=== PATIENT | female | born 1960 | race Caucasian/White ===

== ENCOUNTER 2019-05-29 09:40 | Inpatient (IN) | payer MEDICARE ==
[~2019-05-29] VITALS: Ht 157.5 cm; Wt 56.1 kg
[2019-05-29 11:31] LABS: BASOPHILS % (AUTO) 0.8 % (0.0-2.0); EOSINOPHILS % (AUTO) 1.2 % (1.0-6.0); HEMATOCRIT 46.1 % (36-46); HEMOGLOBIN 15.2 g/dL (12.0-16.0); LYMPHOCYTES # (AUTO) 1.4 K/uL (1.0-4.8); LYMPHOCYTES % (AUTO) 16.6 % (22.0-44.0); MEAN CORPUSCULAR HGB CONC 32.9 G/dL (31.0-37.0); MEAN CORPUSCULAR VOLUME 91 fL (80-100); MONOCYTES # (AUTO) 0.6 K/uL (0.1-1.0); MONOCYTES % (AUTO) 6.9 % (2.0-9.0); NEUTROPHILS # (AUTO) 6.2 K/uL (1.8-7.7); NEUTROPHILS % (AUTO) 74.5 % (40.0-70.0); PLATELET COUNT (AUTO) 201 K/uL (150-450); RED BLOOD CELL COUNT(AUTO) 5.06 MIL/uL (4.00-5.20)
[2019-05-29 11:53] LABS: ALANINE AMINOTRANSFERASE 14 U/L (12-78); ALBUMIN 3.4 g/dL (3.4-5.0); ALKALINE PHOSPHATASE 81 U/L (46-116); ANION GAP 8 mmol/L (8-16); ASPARTATE AMINOTRANSFERASE 41 U/L (15-37); BILIRUBIN,TOTAL 0.8 mg/dL (0.1-1.0); CALCIUM, TOTAL 9.5 mg/dL (8.8-10.5); CARBON DIOXIDE 28 mmol/L (22-29); CHLORIDE 103 mmol/L (98-107); CREATININE 0.94 mg/dL (0.60-1.30); GLOMERULAR FILTR. RATE CALC > 60 mL/min (>60); GLUCOSE,RANDOM 94 mg/dL (70-110); POTASSIUM 3.7 mmol/L (3.5-5.1); SODIUM SERUM 139 mmol/L (136-145)
[2019-05-29 12:56] LABS: UREA NITROGEN, BLOOD 13 mg/dL (7-18)
[2019-05-29] MEDS ORDERED: LORazepam 2 MG TABLET PO PRN (14:45)
[2019-05-29] MEDS ORDERED: HALOPERIDOL 5 MG TABLET PO PRN (14:45)
[2019-05-29] MEDS ORDERED: ZOLPIDEM TARTRATE 10 MG TABLET PO PRN (14:45)
[2019-05-29] MEDS ORDERED: DOCUSATE SODIUM 100 MG CAPSULE PO PRN (18:30)
[2019-05-29] MEDS ORDERED: NICOTINE 14 MG/24 HOUR PATCH TD PRN (18:30)
[2019-05-29] MEDS ORDERED: PETROLATUM,WHITE 28 GM JELLY TP PRN (18:30)
[2019-05-29] MEDS ORDERED: IBUPROFEN 400 MG TABLET PO PRN (18:30)
[2019-05-29] MEDS ORDERED: ONDANSETRON HCL 4 MG TABLET PO PRN (18:30)
[2019-05-29] MEDS ORDERED: LOPERAMIDE HCL 2 MG CAPSULE PO PRN (18:30)
[2019-05-29] MEDS ORDERED: MAG HYDROX/AL HYDROX/SIMETH ES 30 ML SUSPENSION UDCUP PO PRN (18:30)
[2019-05-29] MEDS ORDERED: ACETAMINOPHEN 325 MG TABLET PO PRN (18:30)
[2019-05-29] MEDS ORDERED: CloNIDine HCL 0.1 MG TABLET PO PRN (18:30)
[2019-05-29] MEDS ORDERED: GuaiFENesin/D-METHORPHAN [SUGAR-FREE] 200-20MG/10 ML SYRUP UDCUP PO PRN (18:30)
[2019-05-29] MEDS ORDERED: MAGNESIUM HYDROXIDE SUSPENSION 30 ML UDCUP PO PRN (18:30)
[2019-05-29] MEDS ORDERED: ALBUTEROL SULFATE HFA 90 MCG/PUFF 8 GM INHALER IH PRN (18:30)
[2019-05-29 18:51] VITALS: BP 95/58
[2019-05-30] MEDS: ZINC OXIDE 16% PASTE 57 GM TUBE TP SCH (17:00)
[2019-05-31] MEDS: ZINC OXIDE 16% PASTE 57 GM TUBE TP SCH ×2 (09:00→17:00)
[2019-06-01] MEDS: ZINC OXIDE 16% PASTE 57 GM TUBE TP SCH ×2 (09:00→17:00)
[2019-06-01] MEDS: VENLAFAXINE HCL 75 MG ER CAPSULE PO SCH (13:30)
[2019-06-01] MEDS: BuPROPion HCL XL 150 MG ER TABLET PO SCH (13:30)
[2019-06-01] MEDS: ARIPiprazole 5 MG TABLET PO SCH (13:30)
[2019-06-02] MEDS: ZINC OXIDE 16% PASTE 57 GM TUBE TP SCH ×2 (09:00→15:50)
[2019-06-02] MEDS: BuPROPion HCL XL 150 MG ER TABLET PO SCH (09:00)
[2019-06-02] MEDS: VENLAFAXINE HCL 75 MG ER CAPSULE PO SCH (09:00)
[2019-06-02] MEDS: ARIPiprazole 5 MG TABLET PO SCH (09:00)
[2019-06-03] MEDS: ZINC OXIDE 16% PASTE 57 GM TUBE TP SCH ×2 (09:00→16:33)
[2019-06-03] MEDS: ARIPiprazole 5 MG TABLET PO SCH (09:00)
[2019-06-03] MEDS: VENLAFAXINE HCL 75 MG ER CAPSULE PO SCH (09:00)
[2019-06-03] MEDS: BuPROPion HCL XL 150 MG ER TABLET PO SCH (09:00)
[2019-06-04] MEDS: ARIPiprazole 5 MG TABLET PO SCH (09:00)
[2019-06-04] MEDS: VENLAFAXINE HCL 75 MG ER CAPSULE PO SCH (09:00)
[2019-06-04] MEDS: BuPROPion HCL XL 150 MG ER TABLET PO SCH (09:00)
[2019-06-04] MEDS: ZINC OXIDE 16% PASTE 57 GM TUBE TP SCH ×2 (09:00→17:00)
[2019-06-05 08:06] VITALS: BP 105/82
[2019-06-05] MEDS: VENLAFAXINE HCL 75 MG ER CAPSULE PO SCH (09:00)
[2019-06-05] MEDS: ARIPiprazole 5 MG TABLET PO SCH (09:00)
[2019-06-05] MEDS: BuPROPion HCL XL 150 MG ER TABLET PO SCH (09:00)
[2019-06-05] MEDS: ZINC OXIDE 16% PASTE 57 GM TUBE TP SCH (09:00)
== END 2019-06-05 15:00 | disposition home or self-care (01) | DRG 885 ==
LOC: EDBD 10:05 → EMS 10:05 → 3EX 16:39
PROVIDERS: ADMIT Psychiatry & Neurology Psychiatry; ATTEND Psychiatry & Neurology Psychiatry
DX: F25.9 Schizoaffective disorder, unspecified (principal); F43.10 Post-traumatic stress disorder, unspecified; I50.9 Heart failure, unspecified; M19.90 Unspecified osteoarthritis, unspecified site; I95.9 Hypotension, unspecified; R74.0 Nonspecific elevation of levels of transaminase and lactic acid dehydrogenase [LDH]; Z59.0 Homelessness; Z91.19 Patient's noncompliance with other medical treatment and regimen; Z87.01 Personal history of pneumonia (recurrent)
CPT/HCPCS: G0378; G0480

== ENCOUNTER 2019-06-15 09:47 | Inpatient (IN) | payer MEDICARE ==
[~2019-06-15] VITALS: Ht 157.5 cm; Wt 56.8 kg
[2019-06-15] MEDS ORDERED: HALOPERIDOL 5 MG TABLET PO PRN (11:30)
[2019-06-15] MEDS ORDERED: LORazepam 2 MG TABLET PO PRN (11:30)
[2019-06-15] MEDS ORDERED: ZOLPIDEM TARTRATE 10 MG TABLET PO PRN (11:30)
[2019-06-15] MEDS ORDERED: ACETAMINOPHEN 325 MG TABLET PO PRN ×2 (11:45→23:00)
[2019-06-15] MEDS ORDERED: LORazepam 2 MG TABLET PO ONE (11:45)
[2019-06-15] MEDS ORDERED: IBUPROFEN 400 MG TABLET PO PRN ×2 (11:45→23:00)
[2019-06-15] MEDS ORDERED: HALOPERIDOL 5 MG TABLET PO ONE (11:45)
[2019-06-15 12:52] LABS: BASOPHILS % (AUTO) 0.7 % (0.0-2.0); EOSINOPHILS % (AUTO) 0.9 % (1.0-6.0); HEMATOCRIT 43.6 % (36-46); HEMOGLOBIN 14.4 g/dL (12.0-16.0); LYMPHOCYTES # (AUTO) 1.8 K/uL (1.0-4.8); MEAN CORPUSCULAR HEMOGLOBIN 29.8 pg (26.0-34.0); MEAN CORPUSCULAR VOLUME 91 fL (80-100); MONOCYTES # (AUTO) 0.6 K/uL (0.1-1.0); MONOCYTES % (AUTO) 5.5 % (2.0-9.0); NEUTROPHILS # (AUTO) 7.9 K/uL (1.8-7.7); NEUTROPHILS % (AUTO) 75.9 % (40.0-70.0); PLATELET COUNT (AUTO) 291 K/uL (150-450); RED BLOOD CELL COUNT(AUTO) 4.82 MIL/uL (4.00-5.20); RED CELL DISTRIBUTION WIDTH 14.3 % (11.5-14.5)
[2019-06-15 13:06] LABS: ANION GAP 7 mmol/L (8-16); CALCIUM, TOTAL 9.3 mg/dL (8.8-10.5); CARBON DIOXIDE 29 mmol/L (22-29); CHLORIDE 102 mmol/L (98-107); GLOMERULAR FILTR. RATE CALC > 60 mL/min (>60); GLUCOSE,RANDOM 88 mg/dL (70-110); POTASSIUM 3.8 mmol/L (3.5-5.1); SODIUM SERUM 138 mmol/L (136-145); UREA NITROGEN, BLOOD 13 mg/dL (7-18)
[2019-06-15 13:12] LABS: ALANINE AMINOTRANSFERASE 11 U/L (12-78); ALBUMIN 3.4 g/dL (3.4-5.0); ALKALINE PHOSPHATASE 82 U/L (46-116); ASPARTATE AMINOTRANSFERASE 16 U/L (15-37); BILIRUBIN,TOTAL 0.4 mg/dL (0.1-1.0); TOTAL PROTEIN, SERUM 6.6 g/dL (6.4-8.2)
[2019-06-15 19:20] VITALS: BP 110/74
[2019-06-15] MEDS ORDERED: MAGNESIUM HYDROXIDE SUSPENSION 30 ML UDCUP PO PRN (23:00)
[2019-06-15] MEDS ORDERED: PETROLATUM,WHITE 28 GM JELLY TP PRN (23:00)
[2019-06-15] MEDS ORDERED: CloNIDine HCL 0.1 MG TABLET PO PRN (23:00)
[2019-06-15] MEDS ORDERED: GuaiFENesin/D-METHORPHAN [SUGAR-FREE] 200-20MG/10 ML SYRUP UDCUP PO PRN (23:00)
[2019-06-15] MEDS ORDERED: LOPERAMIDE HCL 2 MG CAPSULE PO PRN (23:00)
[2019-06-15] MEDS ORDERED: ALBUTEROL SULFATE HFA 90 MCG/PUFF 8 GM INHALER IH PRN (23:00)
[2019-06-15] MEDS ORDERED: ONDANSETRON HCL 4 MG TABLET PO PRN (23:00)
[2019-06-15] MEDS ORDERED: NICOTINE 14 MG/24 HOUR PATCH TD PRN (23:00)
[2019-06-15] MEDS ORDERED: DOCUSATE SODIUM 100 MG CAPSULE PO PRN (23:00)
[2019-06-15] MEDS ORDERED: MAG HYDROX/AL HYDROX/SIMETH ES 30 ML SUSPENSION UDCUP PO PRN (23:00)
[2019-06-16 07:19] LABS: BASOPHILS % (AUTO) 0.6 % (0.0-2.0); EOSINOPHILS % (AUTO) 1.7 % (1.0-6.0); HEMATOCRIT 42.7 % (36-46); HEMOGLOBIN 13.8 g/dL (12.0-16.0); LYMPHOCYTES # (AUTO) 1.9 K/uL (1.0-4.8); LYMPHOCYTES % (AUTO) 22.6 % (22.0-44.0); MEAN CORPUSCULAR HEMOGLOBIN 29.4 pg (26.0-34.0); MEAN CORPUSCULAR HGB CONC 32.3 G/dL (31.0-37.0); MEAN CORPUSCULAR VOLUME 91 fL (80-100); MONOCYTES # (AUTO) 0.4 K/uL (0.1-1.0); NEUTROPHILS # (AUTO) 5.9 K/uL (1.8-7.7); NEUTROPHILS % (AUTO) 70.1 % (40.0-70.0); PLATELET COUNT (AUTO) 276 K/uL (150-450); RED BLOOD CELL COUNT(AUTO) 4.69 MIL/uL (4.00-5.20); RED CELL DISTRIBUTION WIDTH 14.7 % (11.5-14.5)
[2019-06-16 07:30] LABS: HEMOGLOBIN A1C 5.9 % (4.5-6.2)
[2019-06-16 07:49] LABS: ALBUMIN 2.9 g/dL (3.4-5.0); BILIRUBIN,TOTAL 0.4 mg/dL (0.1-1.0); CHOL/HDL RATIO 4.2 (3.9-5.7); CREATININE 0.96 mg/dL (0.60-1.30); POTASSIUM 4.3 mmol/L (3.5-5.1); THYROID STIMULATING HORMONE 7.6 uIU/mL (0.36-3.74); TOTAL PROTEIN, SERUM 5.6 g/dL (6.4-8.2)
[2019-06-16 08:00] VITALS: BP 100/57
[2019-06-16 15:52] LABS: FREE T4 (FREE THYROXINE) 1.02 ng/dL (0.76-1.46)
[2019-06-16 17:16] VITALS: BP 91/52
[2019-06-17 08:00] VITALS: BP 102/54
[2019-06-18] MEDS: LEVOTHYROXINE SODIUM 25 MCG TABLET PO SCH (07:00)
[2019-06-18 08:00] VITALS: BP 101/56
[2019-06-19] MEDS: LEVOTHYROXINE SODIUM 25 MCG TABLET PO SCH (07:00)
[2019-06-20] MEDS: LEVOTHYROXINE SODIUM 25 MCG TABLET PO SCH (06:37)
[2019-06-20] MEDS: OLANZapine 10 MG TABLET PO SCH ×2 (18:00→19:00)
[2019-06-21] MEDS: LEVOTHYROXINE SODIUM 25 MCG TABLET PO SCH (06:54)
[2019-06-21] MEDS: OLANZapine 10 MG TABLET PO SCH ×3 (09:00→16:41)
[2019-06-22] MEDS: LEVOTHYROXINE SODIUM 25 MCG TABLET PO SCH (06:43)
[2019-06-22] MEDS: OLANZapine 10 MG TABLET PO SCH ×2 (08:09→17:00)
[2019-06-23] MEDS: LEVOTHYROXINE SODIUM 25 MCG TABLET PO SCH (06:44)
[2019-06-23 08:00] VITALS: BP 91/60
[2019-06-23] MEDS: OLANZapine 10 MG TABLET PO SCH ×2 (09:00→17:00)
[2019-06-23] MEDS: HALOPERIDOL LACTATE 5 MG/ML VIAL IM PRN (18:13)
[2019-06-23] MEDS: LORazepam 2 MG/ML VIAL IM PRN (18:14)
[2019-06-23] MEDS: DiphenhydrAMINE HCL 50 MG/ML VIAL IM PRN (18:14)
[2019-06-24] MEDS: LEVOTHYROXINE SODIUM 25 MCG TABLET PO SCH (06:32)
[2019-06-24 08:34] VITALS: BP 92/60
[2019-06-24] MEDS: OLANZapine 10 MG TABLET PO SCH ×2 (08:49→17:00)
[2019-06-24] MEDS: HALOPERIDOL LACTATE 5 MG/ML VIAL IM PRN ×2 (11:53→20:14)
[2019-06-24] MEDS: DiphenhydrAMINE HCL 50 MG/ML VIAL IM PRN ×2 (11:53→20:14)
[2019-06-24] MEDS: LORazepam 2 MG/ML VIAL IM PRN ×2 (11:53→20:14)
[2019-06-25] MEDS: LEVOTHYROXINE SODIUM 25 MCG TABLET PO SCH (06:35)
[2019-06-25 08:45] VITALS: BP 98/54
[2019-06-25] MEDS: OLANZapine 10 MG TABLET PO SCH ×2 (08:48→17:00)
[2019-06-25] MEDS: LORazepam 2 MG/ML VIAL IM PRN ×2 (09:05→19:41)
[2019-06-25] MEDS: DiphenhydrAMINE HCL 50 MG/ML VIAL IM PRN ×2 (09:05→19:40)
[2019-06-25] MEDS: HALOPERIDOL LACTATE 5 MG/ML VIAL IM PRN ×2 (09:08→19:41)
[2019-06-26] MEDS: LEVOTHYROXINE SODIUM 25 MCG TABLET PO SCH (06:44)
[2019-06-26] MEDS: OLANZapine 10 MG TABLET PO SCH ×2 (08:54→17:00)
[2019-06-26] MEDS: LORazepam 2 MG/ML VIAL IM PRN ×2 (09:01→18:09)
[2019-06-26] MEDS: DiphenhydrAMINE HCL 50 MG/ML VIAL IM PRN ×2 (09:01→18:08)
[2019-06-26] MEDS: HALOPERIDOL LACTATE 5 MG/ML VIAL IM PRN ×2 (09:03→18:10)
[2019-06-26 16:48] VITALS: BP 96/63
[2019-06-27] MEDS: LEVOTHYROXINE SODIUM 25 MCG TABLET PO SCH (06:45)
[2019-06-27 08:43] VITALS: BP 90/55
[2019-06-27] MEDS: OLANZapine 10 MG TABLET PO SCH ×2 (09:00→17:00)
[2019-06-27] MEDS: DiphenhydrAMINE HCL 50 MG/ML VIAL IM PRN ×2 (09:28→17:28)
[2019-06-27] MEDS: LORazepam 2 MG/ML VIAL IM PRN ×2 (09:28→17:28)
[2019-06-27] MEDS: HALOPERIDOL LACTATE 5 MG/ML VIAL IM PRN ×2 (09:29→17:28)
[2019-06-27] MEDS ORDERED: ARIPiprazole LAUROXIL,SUBMICR. ER SUSPENSION 675 MG/2.4 ML SYRINGE IM ONE (16:00)
[2019-06-27] MEDS ORDERED: ARIPiprazole 15 MG TABLET PO ONE (16:00)
[2019-06-27 17:07] VITALS: BP 92/58
[2019-06-27 22:35] VITALS: BP 104/55
[2019-06-28] MEDS: LEVOTHYROXINE SODIUM 25 MCG TABLET PO SCH (06:36)
[2019-06-28 08:36] VITALS: BP 91/59
[2019-06-28] MEDS: OLANZapine 10 MG TABLET PO SCH ×2 (09:00→17:25)
[2019-06-28] MEDS: LORazepam 2 MG/ML VIAL IM PRN (10:07)
[2019-06-28] MEDS: DiphenhydrAMINE HCL 50 MG/ML VIAL IM PRN (10:08)
[2019-06-28] MEDS: HALOPERIDOL LACTATE 5 MG/ML VIAL IM PRN (10:08)
[2019-06-28 19:36] VITALS: BP 99/59
[2019-06-29] MEDS: LEVOTHYROXINE SODIUM 25 MCG TABLET PO SCH (06:42)
[2019-06-29] MEDS: OLANZapine 10 MG TABLET PO SCH ×2 (08:16→16:30)
[2019-06-29 08:23] VITALS: BP 84/63
[2019-06-29 16:35] VITALS: BP 94/60
[2019-06-30] MEDS: LEVOTHYROXINE SODIUM 25 MCG TABLET PO SCH (06:43)
[2019-06-30] MEDS: OLANZapine 10 MG TABLET PO SCH ×2 (08:22→15:54)
[2019-06-30 16:05] VITALS: BP 96/60
[2019-07-01] MEDS: LEVOTHYROXINE SODIUM 25 MCG TABLET PO SCH (06:49)
[2019-07-01 08:52] VITALS: BP 89/57
[2019-07-01] MEDS ORDERED: ARIPiprazole LAUROXIL ER SUSPENSION 1064 MG/3.9 ML SYRINGE IM ONE (13:00)
[2019-07-01 16:48] VITALS: BP 96/70
[2019-07-02] MEDS: LEVOTHYROXINE SODIUM 25 MCG TABLET PO SCH (06:44)
[2019-07-02 08:00] VITALS: BP 98/54
[2019-07-02 16:09] VITALS: BP 100/62
[2019-07-03] MEDS: LEVOTHYROXINE SODIUM 25 MCG TABLET PO SCH (06:47)
[2019-07-03 12:02] VITALS: BP 90/62
[2019-07-03] MEDS ORDERED: LORATADINE 10 MG TABLET PO SCH (15:00)
[2019-07-03] MEDS ORDERED: FLUTICASONE PROPIONATE 50 MCG/SPRAY 16 GM NASAL SPRAY NASAL SCH (17:00)
[2019-07-04] MEDS: LEVOTHYROXINE SODIUM 25 MCG TABLET PO SCH (07:00)
[2019-07-04 08:58] VITALS: BP 92/63
[2019-07-05] MEDS: LEVOTHYROXINE SODIUM 25 MCG TABLET PO SCH (06:35)
[2019-07-05 09:10] VITALS: BP 90/60
[2019-07-05 17:24] VITALS: BP 93/61
[2019-07-06] MEDS: LEVOTHYROXINE SODIUM 25 MCG TABLET PO SCH (06:34)
[2019-07-06 09:03] VITALS: BP 92/63
[2019-07-06 16:44] VITALS: BP 101/61
[2019-07-07] MEDS: LEVOTHYROXINE SODIUM 25 MCG TABLET PO SCH (06:48)
[2019-07-07 11:59] VITALS: BP 92/67
[2019-07-07 18:22] VITALS: BP 99/57
[2019-07-08] MEDS: LEVOTHYROXINE SODIUM 25 MCG TABLET PO SCH (06:35)
[2019-07-08 08:23] VITALS: BP 106/74
[2019-07-08 16:48] VITALS: BP 99/59
[2019-07-09] MEDS: LEVOTHYROXINE SODIUM 25 MCG TABLET PO SCH (06:34)
[2019-07-09 08:09] VITALS: BP 90/45
[2019-07-09 16:52] VITALS: BP 105/67
[2019-07-10] MEDS: LEVOTHYROXINE SODIUM 25 MCG TABLET PO SCH (06:27)
[2019-07-10 16:26] VITALS: BP 105/72
[2019-07-11] MEDS: LEVOTHYROXINE SODIUM 25 MCG TABLET PO SCH (06:30)
[2019-07-11 08:00] VITALS: BP 91/65
[2019-07-11 16:29] VITALS: BP 101/87
[2019-07-12] MEDS: LEVOTHYROXINE SODIUM 25 MCG TABLET PO SCH (06:44)
[2019-07-12 16:33] VITALS: BP 88/63
[2019-07-13] MEDS: LEVOTHYROXINE SODIUM 25 MCG TABLET PO SCH (06:31)
[2019-07-13 08:31] VITALS: BP 93/68
[2019-07-13 16:03] VITALS: BP 91/65
[2019-07-14] MEDS: LEVOTHYROXINE SODIUM 25 MCG TABLET PO SCH (06:52)
[2019-07-14 08:12] VITALS: BP 95/69
[2019-07-14 16:57] VITALS: BP 103/62
[2019-07-15] MEDS: LEVOTHYROXINE SODIUM 25 MCG TABLET PO SCH (06:33)
[2019-07-15 16:08] VITALS: BP 102/77
[2019-07-16] MEDS: LEVOTHYROXINE SODIUM 25 MCG TABLET PO SCH (06:38)
[2019-07-16 08:11] VITALS: BP 83/65
[2019-07-16 16:01] VITALS: BP 104/76
[2019-07-17] MEDS: LEVOTHYROXINE SODIUM 25 MCG TABLET PO SCH (06:56)
[2019-07-17 08:27] VITALS: BP 111/67
[2019-07-17 16:05] VITALS: BP 108/77
[2019-07-18] MEDS: LEVOTHYROXINE SODIUM 25 MCG TABLET PO SCH (06:39)
[2019-07-18 08:27] VITALS: BP 91/62
[2019-07-19] MEDS: LEVOTHYROXINE SODIUM 25 MCG TABLET PO SCH (06:22)
[2019-07-19 10:25] VITALS: BP 115/71
[2019-07-19 16:43] VITALS: BP 120/67
[2019-07-20] MEDS: LEVOTHYROXINE SODIUM 25 MCG TABLET PO SCH (06:45)
[2019-07-20 08:20] VITALS: BP 98/66
[2019-07-21] MEDS: LEVOTHYROXINE SODIUM 25 MCG TABLET PO SCH (06:51)
[2019-07-21 08:39] VITALS: BP 101/98
[2019-07-21 16:03] VITALS: BP 106/77
[2019-07-22] MEDS: LEVOTHYROXINE SODIUM 25 MCG TABLET PO SCH (06:27)
[2019-07-22 08:00] VITALS: BP 93/68
[2019-07-22 16:43] VITALS: BP 113/60
[2019-07-23] MEDS: LEVOTHYROXINE SODIUM 25 MCG TABLET PO SCH (06:45)
[2019-07-23 16:26] VITALS: BP 92/64
[2019-07-23 19:35] VITALS: BP 112/62
[2019-07-24] MEDS: LEVOTHYROXINE SODIUM 25 MCG TABLET PO SCH (06:52)
[2019-07-24 16:20] VITALS: BP 98/66
[2019-07-24 20:35] VITALS: BP 100/60
[2019-07-25] MEDS: LEVOTHYROXINE SODIUM 25 MCG TABLET PO SCH (06:51)
[2019-07-25 08:00] VITALS: BP 141/93
[2019-07-25 16:29] VITALS: BP 98/66
[2019-07-26] MEDS: LEVOTHYROXINE SODIUM 25 MCG TABLET PO SCH (06:46)
[2019-07-26 16:28] VITALS: BP 116/71
[2019-07-27] MEDS: LEVOTHYROXINE SODIUM 25 MCG TABLET PO SCH (06:34)
[2019-07-27 06:56] LABS: EOSINOPHILS % (AUTO) 2.3 % (1.0-6.0); HEMATOCRIT 40.7 % (36-46); HEMOGLOBIN 13.4 g/dL (12.0-16.0); LYMPHOCYTES # (AUTO) 1.9 K/uL (1.0-4.8); LYMPHOCYTES % (AUTO) 23.4 % (22.0-44.0); MEAN CORPUSCULAR HEMOGLOBIN 30.4 pg (26.0-34.0); MEAN CORPUSCULAR HGB CONC 32.8 G/dL (31.0-37.0); MEAN CORPUSCULAR VOLUME 93 fL (80-100); MONOCYTES # (AUTO) 0.6 K/uL (0.1-1.0); MONOCYTES % (AUTO) 7.6 % (2.0-9.0); NEUTROPHILS # (AUTO) 5.5 K/uL (1.8-7.7); NEUTROPHILS % (AUTO) 65.7 % (40.0-70.0); PLATELET COUNT (AUTO) 228 K/uL (150-450)
[2019-07-27 07:30] LABS: CALCIUM, TOTAL 9.2 mg/dL (8.8-10.5); CREATININE 0.99 mg/dL (0.60-1.30); POTASSIUM 4.6 mmol/L (3.5-5.1)
[2019-07-27 08:41] VITALS: BP 92/60
[2019-07-27 18:25] VITALS: BP 94/66
[2019-07-28] MEDS: LEVOTHYROXINE SODIUM 25 MCG TABLET PO SCH (06:41)
[2019-07-28 08:38] VITALS: BP 98/64
[2019-07-28 16:49] VITALS: BP 108/69
[2019-07-29] MEDS: LEVOTHYROXINE SODIUM 25 MCG TABLET PO SCH (06:50)
[2019-07-29 08:53] VITALS: BP 90/70
[2019-07-30] MEDS: LEVOTHYROXINE SODIUM 25 MCG TABLET PO SCH (06:42)
[2019-07-30 16:28] VITALS: BP 98/66
[2019-07-31] MEDS: LEVOTHYROXINE SODIUM 25 MCG TABLET PO SCH (06:50)
== END 2019-07-31 15:30 | disposition home or self-care (01) | DRG 885 ==
LOC: EMS 10:00 → 3EC 16:26
PROVIDERS: ADMIT Psychiatry & Neurology Psychiatry; ATTEND Psychiatry & Neurology Psychiatry
DX: F20.0 Paranoid schizophrenia (principal); E03.9 Hypothyroidism, unspecified; F20.1 Disorganized schizophrenia; F43.10 Post-traumatic stress disorder, unspecified; I50.9 Heart failure, unspecified; M19.90 Unspecified osteoarthritis, unspecified site; R45.850 Homicidal ideations; Z87.891 Personal history of nicotine dependence; Z91.19 Patient's noncompliance with other medical treatment and regimen
CPT/HCPCS: 83036; 84439; 84443; 87081; G0480; J1200; J1630; J2060

== ENCOUNTER 2019-07-31 20:55 | Emergency (ER) | payer MEDICARE ==
[~2019-07-31] VITALS: Ht 157.5 cm; Wt 56.4 kg
[2019-07-31 21:56] VITALS: BP 111/67
== END 2019-07-31 22:26 | disposition home or self-care (01) ==
LOC: EMS 20:56
DX: F41.9 Anxiety disorder, unspecified (principal); Z59.0 Homelessness; Z88.8 Allergy status to other drugs, medicaments and biological substances; Z87.891 Personal history of nicotine dependence
CPT/HCPCS: 93005

== ENCOUNTER 2019-08-26 23:44 | Inpatient (IN) | payer MEDICARE ==
[~2019-08-26] VITALS: Ht 157.5 cm; Wt 58.6 kg
[2019-08-27 01:50] LABS: BASOPHILS % (AUTO) 0.9 % (0.0-2.0); EOSINOPHILS % (AUTO) 2.1 % (1.0-6.0); HEMATOCRIT 44.1 % (36-46); HEMOGLOBIN 14.6 g/dL (12.0-16.0); LYMPHOCYTES % (AUTO) 27.6 % (22.0-44.0); MEAN CORPUSCULAR HEMOGLOBIN 30.8 pg (26.0-34.0); MEAN CORPUSCULAR VOLUME 93 fL (80-100); MONOCYTES # (AUTO) 0.5 K/uL (0.1-1.0); MONOCYTES % (AUTO) 7.3 % (2.0-9.0); NEUTROPHILS # (AUTO) 4.5 K/uL (1.8-7.7); NEUTROPHILS % (AUTO) 62.1 % (40.0-70.0); PLATELET COUNT (AUTO) 226 K/uL (150-450); RED BLOOD CELL COUNT(AUTO) 4.72 MIL/uL (4.00-5.20)
[2019-08-27 01:53] LABS: ANION GAP 8 mmol/L (8-16); CALCIUM, TOTAL 8.8 mg/dL (8.8-10.5); CARBON DIOXIDE 30 mmol/L (22-29); CHLORIDE 103 mmol/L (98-107); CREATININE 0.93 mg/dL (0.60-1.30); GLOMERULAR FILTR. RATE CALC > 60 mL/min (>60); GLUCOSE,RANDOM 87 mg/dL (70-110); POTASSIUM 3.6 mmol/L (3.5-5.1); SODIUM SERUM 141 mmol/L (136-145); UREA NITROGEN, BLOOD 9 mg/dL (7-18)
[2019-08-27 02:05] LABS: PLATELET MORPHOLOGY COMMENT LARGE PLTS PRESENT
[2019-08-27 02:12] LABS: B-TYPE NATRIURETIC PEPTIDE 16 pg/mL (0-100)
[2019-08-27 02:20] LABS: ALANINE AMINOTRANSFERASE 22 U/L (12-78); ALBUMIN 3.7 g/dL (3.4-5.0); ALKALINE PHOSPHATASE 102 U/L (46-116); ASPARTATE AMINOTRANSFERASE 22 U/L (15-37); BILIRUBIN,TOTAL 0.2 mg/dL (0.1-1.0); CREATINE KINASE, TOTAL ONLY 191 U/L (26-192); HCG,QUANTITATIVE 3 mIU/mL (0-6); TOTAL PROTEIN, SERUM 7.4 g/dL (6.4-8.2)
[2019-08-27] MEDS ORDERED: HEPARIN SODIUM,PORCINE 5,000 UNITS/ML VIAL IVP PRN ×2 (03:00)
[2019-08-27] MEDS ORDERED: HEPARIN SODIUM 25000 UNITS/D5W 250 ML IV PRN (03:00)
[2019-08-27] MEDS ORDERED: ACETAMINOPHEN 325 MG TABLET PO PRN ×2 (03:45→09:00)
[2019-08-27] MEDS ORDERED: 0.9% SODIUM CHLORIDE 10 ML SYRINGE IVP PRN (03:45)
[2019-08-27] MEDS ORDERED: ONDANSETRON HCL 4 MG/2 ML VIAL IVP PRN (03:45)
[2019-08-27] MEDS ORDERED: HEPARIN SODIUM,PORCINE 5,000 UNITS/ML VIAL IVP ONE (04:00)
[2019-08-27 05:40] VITALS: BP 107/60
[2019-08-27 07:32] VITALS: BP 98/56
[2019-08-27] MEDS: FUROSEMIDE 20 MG/2 ML VIAL IVP SCH (09:00)
[2019-08-27] MEDS: DOCUSATE SODIUM 100 MG CAPSULE PO SCH ×2 (09:00→20:46)
[2019-08-27] MEDS: FAMOTIDINE 20 MG TABLET PO SCH (09:00)
[2019-08-27] MEDS: APIXABAN 5 MG TABLET PO SCH ×2 (09:17→20:46)
[2019-08-27] MEDS ORDERED: SODIUM CHLORIDE 0.9% 500 ML IV ONE (09:56)
[2019-08-27] MEDS ORDERED: SODIUM CHLORIDE 0.9% 250 ML IV ONE (10:00)
[2019-08-27 11:23] VITALS: BP 97/54
[2019-08-27 15:15] VITALS: BP 92/51
[2019-08-27 19:38] VITALS: BP 92/50
[2019-08-28 07:43] VITALS: BP 110/64
[2019-08-28] MEDS: DOCUSATE SODIUM 100 MG CAPSULE PO SCH ×2 (09:00→20:07)
[2019-08-28] MEDS: FUROSEMIDE 20 MG/2 ML VIAL IVP SCH (09:00)
[2019-08-28] MEDS: FAMOTIDINE 20 MG TABLET PO SCH (09:00)
[2019-08-28] MEDS: APIXABAN 5 MG TABLET PO SCH ×2 (09:15→20:05)
[2019-08-28] MEDS ORDERED: *CLINICAL-LEVOFLOXACIN IVPB DOSING CLINICAL ONE (10:00)
[2019-08-28] MEDS: LEVOFLOXACIN 750 MG/D5% WATER 150 ML IV SCH (11:00)
[2019-08-28 11:25] VITALS: BP 106/58
[2019-08-28 20:01] VITALS: BP 105/62
[2019-08-29 04:48] VITALS: BP 102/66
[2019-08-29] MEDS: DOCUSATE SODIUM 100 MG CAPSULE PO SCH ×2 (09:00→21:00)
[2019-08-29] MEDS: FAMOTIDINE 20 MG TABLET PO SCH (09:00)
[2019-08-29] MEDS: FUROSEMIDE 20 MG/2 ML VIAL IVP SCH (09:30)
[2019-08-29] MEDS: APIXABAN 5 MG TABLET PO SCH ×2 (09:30→21:00)
[2019-08-29] MEDS: LEVOFLOXACIN 750 MG/D5% WATER 150 ML IV SCH (10:36)
[2019-08-29 11:11] VITALS: BP 99/69
[2019-08-30 06:35] VITALS: BP 98/65
[2019-08-30] MEDS: APIXABAN 5 MG TABLET PO SCH (08:19)
[2019-08-30] MEDS: DOCUSATE SODIUM 100 MG CAPSULE PO SCH (08:21)
[2019-08-30] MEDS: FUROSEMIDE 20 MG/2 ML VIAL IVP SCH (08:21)
[2019-08-30] MEDS: FAMOTIDINE 20 MG TABLET PO SCH (08:21)
[2019-08-30 09:10] VITALS: BP 89/58
[2019-08-30] MEDS: LEVOFLOXACIN 750 MG/D5% WATER 150 ML IV SCH (10:35)
[2019-08-30 12:32] VITALS: BP 85/49
[2019-08-30] MEDS ORDERED: APIX5TAB PO ×2 (14:06→14:07)
[2019-08-30] MEDS ORDERED: LEVO250 PO (14:07)
== END 2019-08-30 14:35 | disposition home or self-care (01) | DRG 300 ==
LOC: EMS 23:46 → 5S 08-27 04:32
PROVIDERS: ADMIT Internal Medicine; ATTEND Internal Medicine
DX: I82.402 Acute embolism and thrombosis of unspecified deep veins of left lower extremity (principal); L03.116 Cellulitis of left lower limb; F17.210 Nicotine dependence, cigarettes, uncomplicated; F20.9 Schizophrenia, unspecified; F43.10 Post-traumatic stress disorder, unspecified; Z90.710 Acquired absence of both cervix and uterus; Z79.1 Long term (current) use of non-steroidal anti-inflammatories (NSAID); Z59.0 Homelessness
CPT/HCPCS: 87081; 93005; 93306; 93970; 97116; 97162; 97530; J1644; J1940; J1956; J7040

== ENCOUNTER 2019-09-02 18:23 | Inpatient (IN) | payer MEDICARE ==
[~2019-09-02] VITALS: Ht 157.5 cm; Wt 59.0 kg
[~2019-09-02 18:23] MED LIST: APIX5TAB PO; LEVO250 PO
[2019-09-02 20:11] LABS: BASOPHILS % (AUTO) 0.7 % (0.0-2.0); EOSINOPHILS % (AUTO) 2.6 % (1.0-6.0); HEMATOCRIT 40.5 % (36-46); HEMOGLOBIN 13.3 g/dL (12.0-16.0); LYMPHOCYTES % (AUTO) 26.3 % (22.0-44.0); MEAN CORPUSCULAR HEMOGLOBIN 30.6 pg (26.0-34.0); MEAN CORPUSCULAR HGB CONC 32.8 G/dL (31.0-37.0); MEAN CORPUSCULAR VOLUME 94 fL (80-100); MONOCYTES # (AUTO) 0.8 K/uL (0.1-1.0); NEUTROPHILS # (AUTO) 4.6 K/uL (1.8-7.7); NEUTROPHILS % (AUTO) 60.4 % (40.0-70.0); PLATELET COUNT (AUTO) 297 K/uL (150-450); RED BLOOD CELL COUNT(AUTO) 4.33 MIL/uL (4.00-5.20); RED CELL DISTRIBUTION WIDTH 14.3 % (11.5-14.5)
[2019-09-02 20:21] LABS: CREATININE 0.95 mg/dL (0.60-1.30); POTASSIUM 3.6 mmol/L (3.5-5.1)
[2019-09-02 20:26] LABS: INR 0.9 (0.9-1.1); PROTHROMBIN TIME 9.5 SEC (9.4-11.6)
[2019-09-02 20:28] LABS: ALBUMIN 3.4 g/dL (3.4-5.0); BILIRUBIN,TOTAL 0.3 mg/dL (0.1-1.0); TOTAL PROTEIN, SERUM 7.3 g/dL (6.4-8.2)
[2019-09-02] MEDS ORDERED: APIXABAN 5 MG TABLET PO ONE (21:30)
[2019-09-02] MEDS ORDERED: ACETAMINOPHEN 325 MG TABLET PO PRN (22:30)
[2019-09-02] MEDS ORDERED: LEVOFLOXACIN 750 MG/D5% WATER 150 ML IV ONE (22:30)
[2019-09-02] MEDS ORDERED: 0.9% SODIUM CHLORIDE 10 ML SYRINGE IVP PRN (22:30)
[2019-09-02 23:15] VITALS: BP 104/60
[2019-09-03 04:30] VITALS: BP 107/64
[2019-09-03] MEDS ORDERED: 0.9% SODIUM CHLORIDE 10 ML SYRINGE IVP PRN (05:00)
[2019-09-03] MEDS ORDERED: ONDANSETRON HCL 4 MG/2 ML VIAL IVP PRN (05:00)
[2019-09-03] MEDS ORDERED: OxyCODONE HCL/ACETAMINOPHEN 5-325 MG TABLET PO PRN ×2 (05:00)
[2019-09-03 07:55] VITALS: BP 97/51
[2019-09-03] MEDS ORDERED: APIXABAN 5 MG TABLET PO SCH (09:00)
[2019-09-03] MEDS ORDERED: DOCUSATE SODIUM 100 MG CAPSULE PO SCH (09:00)
[2019-09-03] MEDS ORDERED: FAMOTIDINE 10 MG/ML 2 ML VIAL IVP SCH (09:00)
[2019-09-03] MEDS ORDERED: DOCUSATE SODIUM 100 MG CAPSULE PO PRN (10:30)
[2019-09-03] MEDS ORDERED: VANCOMYCIN HCL 1 GM/D5% WATER 200 ML IV ONE (11:00)
[2019-09-03] MEDS ORDERED: SODIUM CHLORIDE 0.9% 250 ML IV ONE ×2 (11:37→13:15)
[2019-09-03] MEDS: CeFAZolin 1 GM/DEXTROSE 50 ML IV SCH ×2 (11:40→16:58)
[2019-09-03 20:04] VITALS: BP 109/58
[2019-09-03] MEDS: APIXABAN 5 MG TABLET PO SCH (20:40)
[2019-09-03] MEDS: FAMOTIDINE 10 MG/ML 2 ML VIAL IVP SCH (20:42)
[2019-09-03] MEDS: ACETAMINOPHEN 325 MG TABLET PO PRN (20:42)
[2019-09-03] MEDS ORDERED: VANCOMYCIN HCL 750 MG in DEXTROSE 5%-WATER 250 ML IV SCH (23:00)
[2019-09-03] MEDS ORDERED: VANCOMYCIN HCL 750 MG in DEXTROSE 5%-WATER 250 ML IV ONE (23:00)
[2019-09-04] MEDS: CeFAZolin 1 GM/DEXTROSE 50 ML IV SCH ×3 (00:51→16:35)
[2019-09-04 05:01] VITALS: BP 106/62
[2019-09-04] MEDS: ACETAMINOPHEN 325 MG TABLET PO PRN (06:09)
[2019-09-04 07:49] VITALS: BP 93/60
[2019-09-04] MEDS: FAMOTIDINE 10 MG/ML 2 ML VIAL IVP SCH ×2 (08:30→21:00)
[2019-09-04] MEDS: APIXABAN 5 MG TABLET PO SCH ×2 (08:42→21:00)
[2019-09-04] MEDS: VANCOMYCIN HCL 750 MG in DEXTROSE 5%-WATER 250 ML IV SCH ×2 (09:40→20:41)
[2019-09-04 10:06] LABS: BASOPHILS % (AUTO) 0.3 % (0.0-2.0); HEMOGLOBIN 12.7 g/dL (12.0-16.0); LYMPHOCYTES % (AUTO) 11.6 % (22.0-44.0); MEAN CORPUSCULAR HEMOGLOBIN 30.8 pg (26.0-34.0); MEAN CORPUSCULAR HGB CONC 33.4 G/dL (31.0-37.0); MEAN CORPUSCULAR VOLUME 92 fL (80-100); MONOCYTES # (AUTO) 0.5 K/uL (0.1-1.0); MONOCYTES % (AUTO) 5.1 % (2.0-9.0); NEUTROPHILS # (AUTO) 7.2 K/uL (1.8-7.7); PLATELET COUNT (AUTO) 280 K/uL (150-450); RED BLOOD CELL COUNT(AUTO) 4.12 MIL/uL (4.00-5.20); RED CELL DISTRIBUTION WIDTH 14.2 % (11.5-14.5)
[2019-09-04 10:13] LABS: CALCIUM, TOTAL 8.6 mg/dL (8.8-10.5); CREATININE 1.04 mg/dL (0.60-1.30); POTASSIUM 3.9 mmol/L (3.5-5.1)
[2019-09-04 11:27] VITALS: BP 78/41
[2019-09-04 12:30] VITALS: BP 90/56
[2019-09-04 15:32] VITALS: BP 82/51
[2019-09-04 19:45] VITALS: BP 95/58
[2019-09-05] MEDS: CeFAZolin 1 GM/DEXTROSE 50 ML IV SCH ×2 (00:09→08:32)
[2019-09-05 05:19] VITALS: BP 98/57
[2019-09-05 06:43] LABS: BASOPHILS % (AUTO) 0.7 % (0.0-2.0); EOSINOPHILS % (AUTO) 4.2 % (1.0-6.0); HEMATOCRIT 38.8 % (36-46); HEMOGLOBIN 13.1 g/dL (12.0-16.0); LYMPHOCYTES # (AUTO) 1.5 K/uL (1.0-4.8); LYMPHOCYTES % (AUTO) 22.1 % (22.0-44.0); MEAN CORPUSCULAR HEMOGLOBIN 30.9 pg (26.0-34.0); MEAN CORPUSCULAR HGB CONC 33.8 G/dL (31.0-37.0); MEAN CORPUSCULAR VOLUME 91 fL (80-100); MONOCYTES # (AUTO) 0.5 K/uL (0.1-1.0); MONOCYTES % (AUTO) 7.5 % (2.0-9.0); NEUTROPHILS # (AUTO) 4.3 K/uL (1.8-7.7); NEUTROPHILS % (AUTO) 65.5 % (40.0-70.0); PLATELET COUNT (AUTO) 280 K/uL (150-450); RED BLOOD CELL COUNT(AUTO) 4.24 MIL/uL (4.00-5.20); RED CELL DISTRIBUTION WIDTH 13.9 % (11.5-14.5)
[2019-09-05 07:15] LABS: ANION GAP 9 mmol/L (8-16); CARBON DIOXIDE 26 mmol/L (22-29); CHLORIDE 105 mmol/L (98-107); CREATININE 0.93 mg/dL (0.60-1.30); GLOMERULAR FILTR. RATE CALC > 60 mL/min (>60); GLUCOSE,RANDOM 97 mg/dL (70-110); POTASSIUM 4.1 mmol/L (3.5-5.1); SODIUM SERUM 140 mmol/L (136-145); UREA NITROGEN, BLOOD 21 mg/dL (7-18); VANCOMYCIN,RANDOM 15.7 mcg/mL (25.0-50.0)
[2019-09-05] MEDS ORDERED: VANCOMYCIN HCL 1 GM/D5% WATER 200 ML IV ONE (08:00)
[2019-09-05 08:06] VITALS: BP 106/65
[2019-09-05 11:42] VITALS: BP 94/63
[2019-09-05] MEDS ORDERED: APIX5TAB PO (12:59)
[2019-09-05] MEDS ORDERED: DOXY100C PO (13:01)
[2019-09-05] MEDS ORDERED: CEPH500 PO (13:04)
[2019-09-05] MEDS ORDERED: VANCOMYCIN HCL 1 GM/D5% WATER 200 ML IV SCH (19:00)
== END 2019-09-05 15:15 | disposition home or self-care (01) | DRG 603 ==
LOC: EMS 18:23 → 5S 22:30 → 5N 09-03 05:00
PROVIDERS: ADMIT Internal Medicine; ATTEND Internal Medicine
DX: L03.115 Cellulitis of right lower limb (principal); I82.593 Chronic embolism and thrombosis of other specified deep vein of lower extremity, bilateral; F20.9 Schizophrenia, unspecified; L03.116 Cellulitis of left lower limb; F43.10 Post-traumatic stress disorder, unspecified; F17.210 Nicotine dependence, cigarettes, uncomplicated; Z90.710 Acquired absence of both cervix and uterus; Z79.1 Long term (current) use of non-steroidal anti-inflammatories (NSAID); Z59.0 Homelessness; Z79.01 Long term (current) use of anticoagulants
CPT/HCPCS: 87081; 93970; 97161; J0690; J1956; J3370; J3490; J7050; J7060

== ENCOUNTER 2019-09-05 17:54 | Emergency (ER) | payer MEDICARE ==
[~2019-09-05] VITALS: Ht 157.5 cm; Wt 56.8 kg
[~2019-09-05 17:54] MED LIST changes: +CEPH500 PO; +DOXY100C PO
[2019-09-05 21:37] LABS: BASOPHILS % (AUTO) 0.6 % (0.0-2.0); EOSINOPHILS % (AUTO) 2.7 % (1.0-6.0); HEMATOCRIT 39.5 % (36-46); HEMOGLOBIN 13.4 g/dL (12.0-16.0); LYMPHOCYTES % (AUTO) 23.7 % (22.0-44.0); MEAN CORPUSCULAR HEMOGLOBIN 31.3 pg (26.0-34.0); MEAN CORPUSCULAR HGB CONC 33.9 G/dL (31.0-37.0); MEAN CORPUSCULAR VOLUME 92 fL (80-100); MONOCYTES # (AUTO) 0.6 K/uL (0.1-1.0); MONOCYTES % (AUTO) 6.6 % (2.0-9.0); NEUTROPHILS # (AUTO) 5.6 K/uL (1.8-7.7); NEUTROPHILS % (AUTO) 66.4 % (40.0-70.0); PLATELET COUNT (AUTO) 327 K/uL (150-450); RED BLOOD CELL COUNT(AUTO) 4.28 MIL/uL (4.00-5.20)
[2019-09-05 21:49] LABS: CALCIUM, TOTAL 9.1 mg/dL (8.8-10.5); POTASSIUM 3.6 mmol/L (3.5-5.1)
[2019-09-05 21:52] LABS: PROTHROMBIN TIME 9.7 SEC (9.4-11.6)
[2019-09-05] MEDS ORDERED: SODIUM CHLORIDE 0.9% 0 ML ONE (21:53)
[2019-09-05] MEDS ORDERED: IOVERSOL 320 MG/ML 100 ML VIAL ONE (21:53)
[2019-09-05 21:57] LABS: ALBUMIN 3.3 g/dL (3.4-5.0); BILIRUBIN,TOTAL 0.2 mg/dL (0.1-1.0); TOTAL PROTEIN, SERUM 7.1 g/dL (6.4-8.2)
[2019-09-05] MEDS ORDERED: IOVERSOL 350 MG/ML 100 ML VIAL ONE (23:44)
[2019-09-05] MEDS ORDERED: SODIUM CHLORIDE 0.9% 100 ML ONE (23:44)
[2019-09-06 04:29] VITALS: BP 117/68
== END 2019-09-06 04:39 | disposition home or self-care (01) ==
LOC: EMS 17:55
DX: R07.89 Other chest pain (principal); F20.9 Schizophrenia, unspecified; F17.210 Nicotine dependence, cigarettes, uncomplicated; F43.10 Post-traumatic stress disorder, unspecified; Z90.710 Acquired absence of both cervix and uterus; Z88.8 Allergy status to other drugs, medicaments and biological substances
CPT/HCPCS: 36415; 71045; 71275; 80053; 82550; 83880; 84484; 85025; 85610; 85730; 93005 ×2; 99285; 99406; J7050; Q9967

== ENCOUNTER 2019-09-07 17:38 | Emergency (ER) | payer MEDICARE ==
[~2019-09-07] VITALS: Ht 152.4 cm; Wt 63.6 kg
[2019-09-07] MEDS ORDERED: LEVOFLOXACIN 750 MG/D5% WATER 150 ML IV ONE (19:15)
[2019-09-07] MEDS ORDERED: APIXABAN 5 MG TABLET PO ONE (19:15)
[2019-09-07 20:31] VITALS: BP 128/80
== END 2019-09-07 20:55 | disposition left against medical advice (07) ==
LOC: EMS 17:38
DX: I82.403 Acute embolism and thrombosis of unspecified deep veins of lower extremity, bilateral (principal); F17.210 Nicotine dependence, cigarettes, uncomplicated; Z90.710 Acquired absence of both cervix and uterus; Z88.6 Allergy status to analgesic agent
CPT/HCPCS: 96365; 96366; 99283; J1956

== ENCOUNTER 2019-09-10 16:26 | Emergency (ER) | payer MEDICARE ==
[~2019-09-10] VITALS: Ht 157.5 cm; Wt 56.8 kg
[2019-09-10 17:42] LABS: BASOPHILS % (AUTO) 1.2 % (0.0-2.0); EOSINOPHILS % (AUTO) 1.8 % (1.0-6.0); HEMATOCRIT 39.3 % (36-46); HEMOGLOBIN 13.2 g/dL (12.0-16.0); LYMPHOCYTES # (AUTO) 2.3 K/uL (1.0-4.8); LYMPHOCYTES % (AUTO) 23.9 % (22.0-44.0); MEAN CORPUSCULAR HGB CONC 33.7 G/dL (31.0-37.0); MEAN CORPUSCULAR VOLUME 92 fL (80-100); MONOCYTES # (AUTO) 0.7 K/uL (0.1-1.0); MONOCYTES % (AUTO) 6.9 % (2.0-9.0); NEUTROPHILS # (AUTO) 6.4 K/uL (1.8-7.7); NEUTROPHILS % (AUTO) 66.2 % (40.0-70.0); PLATELET COUNT (AUTO) 308 K/uL (150-450); RED BLOOD CELL COUNT(AUTO) 4.28 MIL/uL (4.00-5.20); RED CELL DISTRIBUTION WIDTH 13.8 % (11.5-14.5)
[2019-09-10 17:52] LABS: CALCIUM, TOTAL 9.1 mg/dL (8.8-10.5); CREATININE 1.01 mg/dL (0.60-1.30); POTASSIUM 3.9 mmol/L (3.5-5.1)
[2019-09-10 17:56] LABS: D-DIMER 0.65 mg/L FEU (0.00-0.50); PROTHROMBIN TIME 9.8 SEC (9.4-11.6)
[2019-09-10 18:17] LABS: ALBUMIN 3.4 g/dL (3.4-5.0); BILIRUBIN,TOTAL 0.1 mg/dL (0.1-1.0); TOTAL PROTEIN, SERUM 6.9 g/dL (6.4-8.2)
[2019-09-10 22:03] VITALS: BP 98/58
== END 2019-09-10 22:11 | disposition home or self-care (01) ==
LOC: EMS 16:27
DX: I82.621 Acute embolism and thrombosis of deep veins of right upper extremity (principal); I50.9 Heart failure, unspecified; F20.9 Schizophrenia, unspecified; F17.210 Nicotine dependence, cigarettes, uncomplicated; Z90.710 Acquired absence of both cervix and uterus; Z88.6 Allergy status to analgesic agent
CPT/HCPCS: 85379; 93005

== ENCOUNTER 2019-09-11 17:20 | Emergency (ER) | payer MEDICARE ==
[~2019-09-11] VITALS: Ht 160 cm; Wt 63.6 kg
[2019-09-11 18:40] VITALS: BP 122/81
[2019-09-11] MEDS ORDERED: KETOROLAC TROMETHAMINE 60 MG/2 ML VIAL IM ONE (19:00)
[2019-09-11] MEDS ORDERED: MethylPREDNISolone SOD SUCC 125 MG/2 ML VIAL IM ONE (19:00)
== END 2019-09-11 19:30 | disposition home or self-care (01) ==
LOC: EMS 17:21
DX: S46.811A Strain of other muscles, fascia and tendons at shoulder and upper arm level, right arm, initial encounter (principal); S16.1XXA Strain of muscle, fascia and tendon at neck level, initial encounter; M75.01 Adhesive capsulitis of right shoulder; I50.9 Heart failure, unspecified; F20.9 Schizophrenia, unspecified; F43.10 Post-traumatic stress disorder, unspecified; Z88.8 Allergy status to other drugs, medicaments and biological substances; Z86.718 Personal history of other venous thrombosis and embolism; Z90.710 Acquired absence of both cervix and uterus; Z87.891 Personal history of nicotine dependence; W17.89XA Other fall from one level to another, initial encounter; Y93.89 Activity, other specified; Y92.89 Other specified places as the place of occurrence of the external cause; Y99.8 Other external cause status
CPT/HCPCS: 73030; 96372; 99283; J1885; J2930

== ENCOUNTER 2019-09-12 12:09 | Emergency (ER) | payer MEDICARE ==
[~2019-09-12] VITALS: Ht 157.5 cm; Wt 65.0 kg
[2019-09-12] MEDS ORDERED: ACETAMINOPHEN 325 MG TABLET PO ONE (12:45)
[2019-09-12 14:02] LABS: BASOPHILS % (AUTO) 0.4 % (0.0-2.0); EOSINOPHILS % (AUTO) 0.3 % (1.0-6.0); HEMATOCRIT 41.2 % (36-46); HEMOGLOBIN 13.8 g/dL (12.0-16.0); LYMPHOCYTES # (AUTO) 1.6 K/uL (1.0-4.8); LYMPHOCYTES % (AUTO) 9.8 % (22.0-44.0); MEAN CORPUSCULAR HEMOGLOBIN 30.9 pg (26.0-34.0); MEAN CORPUSCULAR HGB CONC 33.5 G/dL (31.0-37.0); MEAN CORPUSCULAR VOLUME 92 fL (80-100); MONOCYTES % (AUTO) 5.7 % (2.0-9.0); NEUTROPHILS # (AUTO) 14.1 K/uL (1.8-7.7); NEUTROPHILS % (AUTO) 83.8 % (40.0-70.0); PLATELET COUNT (AUTO) 367 K/uL (150-450); RED BLOOD CELL COUNT(AUTO) 4.46 MIL/uL (4.00-5.20); RED CELL DISTRIBUTION WIDTH 14.1 % (11.5-14.5)
[2019-09-12 14:12] LABS: ANION GAP 10 mmol/L (8-16); CALCIUM, TOTAL 9.8 mg/dL (8.8-10.5); CARBON DIOXIDE 30 mmol/L (22-29); CHLORIDE 106 mmol/L (98-107); GLOMERULAR FILTR. RATE CALC 51 mL/min (>60); GLUCOSE,RANDOM 85 mg/dL (70-110); POTASSIUM 4.1 mmol/L (3.5-5.1); SODIUM SERUM 146 mmol/L (136-145); UREA NITROGEN, BLOOD 14 mg/dL (7-18)
[2019-09-12 14:18] LABS: ALANINE AMINOTRANSFERASE 24 U/L (12-78); ALBUMIN 3.7 g/dL (3.4-5.0); ALKALINE PHOSPHATASE 75 U/L (46-116); ASPARTATE AMINOTRANSFERASE 28 U/L (15-37); BILIRUBIN,TOTAL 0.2 mg/dL (0.1-1.0); TOTAL PROTEIN, SERUM 7.5 g/dL (6.4-8.2)
[2019-09-12 15:08] LABS: APPEARANCE,URINE TURBID (CLEAR); BILIRUBIN,URINE NEGATIVE (NEGATIVE); GLUCOSE, URINE (UA) 250 mg/dL (NEGATIVE); KETONES,URINE NEGATIVE (NEGATIVE); LEUKOCYTE ESTERASE ,URINE NEGATIVE (NEGATIVE); NITRATE,URINE NEGATIVE (NEGATIVE); OCCULT BLOOD,URINE NEGATIVE (NEGATIVE); PROTEIN,URINE NEGATIVE (NEGATIVE); UROBILINOGEN,URINE 0.2 mg/dL (<=1.0)
[2019-09-12 15:16] LABS: WBC,URINE 0-2 /HPF (0-5)
[2019-09-12 15:17] LABS: AMPHET/METH SCREEN,URINE NEGATIVE (NEGATIVE); BACTERIA,URINE None Seen /HPF (None Seen); BARBITURATE SCREEN, URINE NEGATIVE (NEGATIVE); BENZODIAZEPINES SCREEN,URINE NEGATIVE (NEGATIVE); CALCIUM OXALATE CRYSTALS,UR Many /LPF (None Seen); CANNABINOID SCREEN,URINE NEGATIVE (NEGATIVE); COCAINE SCREEN,URINE NEGATIVE (NEGATIVE); METHADONE SCREEN, URINE NEGATIVE (NEGATIVE); OPIATE SCREEN,URINE NEGATIVE (NEGATIVE); PHENCYCLIDINE SCREEN,URINE NEGATIVE (NEGATIVE); RBC,URINE 0-2 /HPF (0-2)
[2019-09-12 15:18] LABS: SQUAMOUS EPITHELIAL CELL,UR Many /LPF (None Seen)
[2019-09-12 15:35] VITALS: BP 108/62
[2019-09-12] MEDS ORDERED: LIDOCAINE/PF 1% 2 ML VIAL IM ONE (15:45)
[2019-09-12] MEDS ORDERED: CefTRIAXone SODIUM 1 GM/VIAL IM ONE (15:45)
== END 2019-09-12 16:23 | disposition home or self-care (01) ==
LOC: EMS 12:10
DX: I82.413 Acute embolism and thrombosis of femoral vein, bilateral (principal); D72.829 Elevated white blood cell count, unspecified; R51 Headache; I50.9 Heart failure, unspecified; F20.9 Schizophrenia, unspecified; Z90.710 Acquired absence of both cervix and uterus; Z87.891 Personal history of nicotine dependence; Z86.718 Personal history of other venous thrombosis and embolism; Z88.8 Allergy status to other drugs, medicaments and biological substances
CPT/HCPCS: 36415; 70450; 71045; 80053; 80307; 81001; 84484; 85025; 93005; 96372; 99284; G0480; J0696; J3490